=== PATIENT | female | born 1980 | race Caucasian/White ===

== ENCOUNTER 2016-11-27 09:45 | Emergency (ER) ==
--- NOTE | 2016-11-27 10:38 | PROVIDER DOCUMENTATION ---
HPI-General Adult - General Chief Complaint: Cold Symptoms Stated Complaint: SORE THROAT,LARSON,COUGHING,CONGESTED Time Seen by Provider: 11/27/16 10:23 Source: patient Allergies/Adverse Reactions: Patient Allergies Allergy/AdvReac Type Severity Reaction Status Date / Time aspirin Allergy HIVES Verified 11/27/16 10:36 hydrocodone AdvReac VOMITING Verified 07/28/16 14:08 Home Medications: Home Medication List Medication Instructions Recorded Confirmed Last Taken Type Buprenorphine/Naloxone S.l. 1 each SL BID #60 tablet 05/29/15 11/27/16 11/27/16 08:00 Rx [Suboxone 8 mg/2 mg] Benzonatate [Tessalon Perle] 100 mg PO QHS #20 capsule 11/27/16 Unknown Rx Ciprofloxacin HCl [Cipro] 500 mg PO BID #14 tablet 11/27/16 Unknown Rx Guaifenesin/Pseudoephedrne HCl 1 each PO BID #30 tab.er.12h 11/27/16 Unknown Rx [Mucinex D ER Tablet] Sertraline HCl [Zoloft] 100 mg PO DAILY 11/27/16 11/27/16 11/27/16 09:00 History - History of Present Illness -Gen Adult Nature of Presenting Problems: 35 y/o WF c/o cough, congestion, frontal LARSON, sinus pressure, dysuria, vaginal d/ c, vomiting, fever, sore throat x 3 days. Pt states her daughter has had intermittent viral syndrome x 1 month that is similar in nature. States cough is not productive. vomiting x 1 three days ago. Denies diarrhea, abd. pain. States fever as high as 102F at home. Reports white vaginal d/c s/p one instance of unprotected sex with new partner recently- requests to have STD screen. Review of Systems - Adult - REVIEW OF SYSTEMS - ADULT Constitutional: reports: see HPI, fever. denies: chills Eyes: reports: no symptoms reported. denies: blurred vision, double vision Ears, Nose, Mouth & Throat: reports: see HPI, ear pain, sinus problem, throat pain Cardiovascular: reports: no symptoms reported. denies: chest pain, palpitations Respiratory: reports: see HPI, cough. denies: shortness of breath, wheezing Gastrointestinal: reports: see HPI, nausea, vomiting. denies: abdominal pain, diarrhea Genitourinary: reports: see HPI, dysuria, discharge. denies: frequency, flank pain Musculoskeletal: reports: no symptoms reported. denies: joint pain, joint swelling Integumentary: reports: no symptoms reported. denies: nail changes, rash Neurological: reports: see HPI, headache/migraines. denies: numbness, paresthesia Psychiatric: reports: no symptoms reported Endocrine: reports: no symptoms reported. denies: cold intolerance, heat intolerance Hematologic/Lymphatic: reports: no symptoms reported. denies: easy bruising, prolonged bleeding Allergic/Immunologic: reports: no symptoms reported All Other Systems: Reviewed and Negative Past History - Adult - PAST MEDICAL HISTORY-ADULT Review of Records: reports: Nursing Assessment Review, Medications Reviewed Major Childhood Illnesses: reports: denies history Cardiovascular: reports: denies history Respiratory: reports: denies history Gastrointestinal: reports: denies history Obstetrical/Gynecological: reports: denies history Genitourinary: reports: denies history Musculoskeletal: reports: denies history Neurological: reports: denies history Psychiatric: reports: denies history Endocrine/Immune: reports: denies history Other Conditions: reports: denies history - PRIOR SURGERIES/PROCEDURES Surgical/Procedure History: reports: other (no recent) - PRIOR HOSPITALIZATIONS Prior Hospitalizations: reports: none - IMMUNIZATION STATUS Childhood Immunizations: UTD Flu Vaccine: See Nurse Assessment - FAMILY HISTORY Family History: reviewed, not pertinent - SOCIAL HISTORY Smoking: cigarettes, less than 1 pack/day Provider spent 3-5 mins advising pt. on dangers of tobacco.: Discussed manners to quit use, and f/u contacts for add'l counseling. Living Situation: family Physical Exam-General - PHYSICAL EXAM-ADULT Initial Vital Signs Reviewed: Yes - CONSTITUTIONAL General Appearance: alert, mild distress - EYES Eyes: pink conjunctivae - HEAD, EARS, NOSE, MOUTH & THROAT HENMT: normocephalic/atraumatic, moist mucous membranes, pharyngeal erythema. negative: TMs normal (red, bilat), tonsillar exudate - NECK Neck: supple, normal inspection. negative: lymphadenopathy - RESPIRATORY Respiratory: no respiratory distress, no accessory muscle use, rhonchi. negative: decreased breath sounds, crackles, rales, stridor, wheezing - CARDIOVASCULAR Cardiovascular: regular rate, rhythm. negative: bradycardia, tachycardia - GASTROINTESTINAL (ABDOMEN) Abdominal Exam: normal bowel sounds - LYMPHATIC Lymphatic: no adenopathy - MUSCULOSKELETAL Extremity: normal gait - SKIN Integumentary: normal color, normal turgor, warm/dry - NEUROLOGIC Neurologic: negative: aphasia - PSYCHIATRIC Psych/Mental Status: normal mood/affect, normal thought content, normal thought process, oriented x 3 Progress - PLAN OF CARE/RESULTS Progress/Plan/Lab Results: Laboratory Tests 11/27/16 10:32 Urine Source CLEAN CATCH Urine Color ORANGE Urine Turbidity HAZY Urine pH 8.0 Ur Specific Mcfarlan 1.012 Urine Protein 30 A Ur Glucose (Stick) NEGATIVE Ur Ketones (Stick) NEGATIVE Urine Blood SMALL A Urine Nitrite POSITIVE A Urine Bilirubin NEGATIVE Urobilinogen Dipstick NORMAL Urine Leukocytes LARGE A Urine WBC (Auto) TNTC A Urine RBC (Auto) <10 U Epithel Cells (Auto) <10 Urine Bacteria (Auto) 4+ Urine Crystals NONE SEEN Small Round Cells NONE SEEN Urine Casts NONE SEEN Urine Yeast-like Cells PRESENT Orders Category Date Time Status ED: Urine Bedside ORDERED Care 11/27/16 10:32 Active CHEST-2 VIEWS [RAD] Stat Exams 11/27/16 10:32 Completed CHLAMYDIA AND GC BY PCR URINE [SQUIRE] Stat Lab 11/27/16 10:32 Received DIRECT STREP Stat Lab 11/27/16 10:32 Completed INFLUENZA SCREEN A/B Stat Lab 11/27/16 10:32 Completed URINALYSIS W/POSS RFLX CULT [URINALYSIS] Stat Lab 11/27/16 10:32 Completed URINE CULTURE [] Routine Lab 11/27/16 11:53 Received URINE MANUAL MICROSCOPIC [URINALYSIS] Stat Lab 11/27/16 10:32 Completed Azithromycin [Zithromax] Med 11/27/16 11:58 Discontinued 1,000 mg PO NOW ONE CefTRIAXONE [Rocephin] Med 11/27/16 11:57 Discontinued 250 mg IM NOW ONE Lidocaine 1% Pf [Xylocaine-Mpf 1%] Med 11/27/16 11:58 Discontinued 5 ml INJ NOW ONE Metronidazole [Flagyl] Med 11/27/16 11:58 Discontinued 2,000 mg PO NOW ONE Vital Signs Temp Pulse Resp BP Pulse Ox 11/27/16 12:05 64 18 117/59 100 11/27/16 10:20 98.4 F 115 H 20 117/61 100 aspirin Allergy (Verified 11/27/16 10:36) HIVES hydrocodone Adverse Reaction (Verified 07/28/16 14:08) VOMITING Buprenorphine/Naloxone S.l. [Suboxone 8 mg/2 mg] 1 each SL BID #60 tablet Benzonatate [Tessalon Perle] 100 mg PO QHS #20 capsule 11/27/16 Ciprofloxacin HCl [Cipro] 500 mg PO BID #14 tablet 11/27/16 Guaifenesin/Pseudoephedrne HCl [Mucinex D ER Tablet] 1 each PO BID #30 tab.er.12h 11/27/16 Sertraline HCl [Zoloft] 100 mg PO DAILY 11/27/16 Laboratory 11/27/16 10:32 Urine Source CLEAN CATCH Urine Color ORANGE Urine Turbidity HAZY Urine pH 8.0 Ur Specific Mcfarlan 1.012 Urine Protein 30 A Ur Glucose (Stick) NEGATIVE Ur Ketones (Stick) NEGATIVE Urine Blood SMALL A Urine Nitrite POSITIVE A Urine Bilirubin NEGATIVE Urobilinogen Dipstick NORMAL Urine Leukocytes LARGE A Urine WBC (Auto) TNTC A Urine RBC (Auto) <10 U Epithel Cells (Auto) <10 Urine Bacteria (Auto) 4+ Urine Crystals NONE SEEN Small Round Cells NONE SEEN Urine Casts NONE SEEN Urine Yeast-like Cells PRESENT Discussed results and f/u with pt, including medications use. - XRAY 1 XRAY Study: Chest XRAY Interpretation: no PNA Departure - Departure Time of Disposition Order: 11:58 DIAGNOSIS: Bronchitis UTI (urinary tract infection) Qualifiers: Urinary tract infection type: acute cystitis Hematuria presence: without hematuria Qualified Code(s): N30.00 - Acute cystitis without hematuria Disposition: HOME 01 Certified Medical Emergency: Emergent Condition: Stable Additional Instructions: Take medications as directed. Follow up with PCP in 3-5 days for recheck. Tylenol or motrin for fever. Drink plenty of fluids. ED Follow Up Instructions: You have been treated by a care provider in the Emergency Department. These instructions are being provided to you so you can have an understanding of how to care for yourself upon discharge. Upon discharge from the Emergency Department, you are responsible for making arrangements for follow-up care by a physician of your choice. Take all prescribed medications as directed. Return to the Emergency Department immediately for any new or worsening symptoms. You may call the Physician Referral phone number at [phone] to obtain a list of Physicians who are taking new patients. Prescriptions: Ciprofloxacin HCl [Cipro] 500 mg PO BID #14 tablet Guaifenesin/Pseudoephedrne HCl [Mucinex D ER Tablet] 1 each PO BID #30 tab.er.12h Benzonatate [Tessalon Perle] 100 mg PO QHS #20 capsule Referrals: None,PCP [Primary Care Provider] - Forms: Return to School/Parent Work Instructions: Urinary Tract Infection, [id number], Acute Bronchitis, Easy-to- Read Attestation - Physician/ AP Attestation Patient care was provided by Advanced Practice Provider:: Yes Advanced Practice Provider:: Tawana Bateman Advanced Practice Provider documentation review:: The Mid-level provider documentation, treatment plan and medical decision making was reviewed by the physician who agrees with all treatment and medical decision making by the MLP.
[2016-11-27 11:01] LABS: URINE SOURCE CLEAN CATCH
[2016-11-27 11:21] LABS: BILIRUBIN URINE NEGATIVE (NEGATIVE); BLOOD URINE SMALL (NEGATIVE); COLOR ORANGE; GLUCOSE URINE NEGATIVE (NEGATIVE); LEUKOCYTES URINE LARGE (NEGATIVE); NITRITE URINE POSITIVE (NEGATIVE); PROTEIN URINE 30 mg/dL (NEGATIVE); SP GRAVITY URINE 1.012; TURBIDITY URINE HAZY (CLEAR); URINE MICRO REVIEW NEEDED? YES; UROBILINOGEN URINE NORMAL (NORMAL)
[2016-11-27 11:23] LABS: UR EPITHELIAL CELLS <10 /HPF (<10); URINE BACTERIA 4+ /HPF; URINE RBC <10 /HPF (<10); URINE WBC TNTC /HPF (<10)
[2016-11-27 11:52] LABS: URINE CASTS NONE SEEN; URINE CRYSTALS NONE SEEN; URINE SMALL ROUND CELLS NONE SEEN
[2016-11-27 11:53] LABS: URINE CULTURE NEEDED? YES
[2016-11-27] MEDS ORDERED: ROCEPHIN IM ONE (11:57)
[2016-11-27] MEDS ORDERED: FLAGYL PO ONE (11:58)
[2016-11-27] MEDS ORDERED: ZITHROMAX PO ONE (11:58)
[2016-11-27] MEDS ORDERED: XYLOCAINE-MPF 1% INJ ONE (11:58)
[2016-11-27 12:05] VITALS: BP 117/59
--- NOTE | 2016-11-27 13:00 | Diag Imaging Result Document ---
PROCEDURE NAME: CHEST-2 VIEWS - 11/27/2016 2 VIEWS OF THE CHEST: FINDINGS: The appearance of the chest has not changed significantly since 04/05/2011. IMPRESSION: No evidence of acute disease.
== END 2016-11-27 12:48 | disposition home or self-care (01) ==
LOC: ED 09:45
DX: J40 Bronchitis, not specified as acute or chronic (principal); N30.00 Acute cystitis without hematuria; J02.9 Acute pharyngitis, unspecified; R51 Headache; R05 Cough; R09.81 Nasal congestion; J34.89 Other specified disorders of nose and nasal sinuses; R30.0 Dysuria; N89.8 Other specified noninflammatory disorders of vagina; R11.10 Vomiting, unspecified; R50.9 Fever, unspecified; F17.210 Nicotine dependence, cigarettes, uncomplicated; Z71.6 Tobacco abuse counseling
CPT/HCPCS: 71020; 81001; 87077; 87081; 87088; 87430; 87491; 87591; 87804; J0696